=== PATIENT | female | born 1975 | race Caucasian/White ===

== ENCOUNTER 2022-05-02 11:18 | Emergency (ER) | payer SELFPAY ==
[~2022-05-02] VITALS: Ht 160 cm; Wt 91.0 kg
[2022-05-02] MEDS ORDERED: HYDROCODONE/ACETAMINOPHEN 5/325MG TABLET PO ONE (11:45)
[2022-05-02] MEDS ORDERED: ONDANSETRON HCL 4MG/2ML INJ IV STA ×2 (12:43→14:23)
[2022-05-02] MEDS ORDERED: MORPHINE SULFATE 4 MG/ML CPJ (NOT FOR IM USE) IV STA ×2 (12:43→14:23)
[2022-05-02] MEDS ORDERED: MORPHINE SULFATE 4 MG/ML CPJ (NOT FOR IM USE) IV ONE (12:45)
[2022-05-02] MEDS ORDERED: SODIUM CHLORIDE 0.9% 1,000 ML IV ONE (12:45)
[2022-05-02] MEDS ORDERED: ETOMIDATE 2MG/ML 10ML VIAL IV ONE (12:45)
[2022-05-02] MEDS ORDERED: HYDROMORPHONE HCL/PF 2MG/ML CPJ IV ONE (15:30)
[2022-05-02 17:20] LABS: BASOPHILS % 0.6 % (0.0-2.0); EOSINOPHILS % 0.3 % (0.0-5.0); HEMATOCRIT. 32.6 % (36.0-48.0); HEMOGLOBIN. 10.4 g/dL (12.0-16.0); LYMPHOCYTES % 17.6 % (20.0-50.0); MEAN CORPUSCULAR HEMOGLOBIN 24.7 pg (28.0-32.0); MEAN CORPUSCULAR VOLUME 77.5 fL (81.0-99.0); MEAN PLATELET VOLUME 8.7 fl (7.4-10.4); NEUTROPHILS % 74.5 % (40.0-76.0); PLATELET 441 x1000/uL (130-400); RED CELL DISTRIBUTION WIDTH 16.4 % (11.6-14.6)
[2022-05-02 17:26] LABS: PARTIAL THROMBOPLASTIN TIME 24.3 sec (23.4-31.0); PROTHROMBIN TIME 10.8 sec (9.6-11.0)
[2022-05-02 17:28] LABS: CHLORIDE 108 mEq/L (98-107)
[2022-05-02 17:44] LABS: HCG SCREEN NEGATIVE
[2022-05-02] MEDS ORDERED: ONDANSETRON HCL 4MG/2ML INJ IV ONE (18:45)
[2022-05-02] MEDS ORDERED: METOCLOPRAMIDE HCL 10MG/2ML VIAL IV ONE ×2 (19:15→23:45)
[2022-05-02] MEDS ORDERED: IBUP-2028 MT ×2 (23:05)
[2022-05-02] MEDS ORDERED: ACET-2708 MT (23:06)
[2022-05-02 23:16] VITALS: BP 106/55
[2022-05-02] MEDS ORDERED: NAPR-681 MT (23:21)
== END 2022-05-02 23:56 | disposition home or self-care (01) ==
LOC: ER 11:18 → SUPCPDRO 20:10 → ENRESERV 20:51 → CANRESERV 20:51 → ER 23:56 → CANBEDREQ 05-04 08:45
DX: S82.61XA Displaced fracture of lateral malleolus of right fibula, initial encounter for closed fracture (principal); S82.51XA Displaced fracture of medial malleolus of right tibia, initial encounter for closed fracture; W50.2XXA Accidental twist by another person, initial encounter; Y93.89 Activity, other specified; Y92.89 Other specified places as the place of occurrence of the external cause; Y99.8 Other external cause status; Z98.890 Other specified postprocedural states; Z20.822 Contact with and (suspected) exposure to COVID-19
CPT/HCPCS: 27810; 36415; 73590; 73600; 73610; 73620; 80053; 84703; 85025; 85610; 85730; 86850; 86900; 86901; 87426; 93005; 96361; 96374; 96375; 96376; 99152; 99285; C9803; J1170; J2270; J2405; J2765; J3490; J7030